=== PATIENT | male | born 1985 ===

== ENCOUNTER 2017-10-31 16:54 | Inpatient (IN) | payer SELFPAY ==
[2017-10-31 17:23] VITALS: BMI 32.3
[2017-10-31] MEDS ORDERED: Sodium Chloride 0.9% 1,000 ML IV STA (18:17)
[2017-10-31] MEDS ORDERED: HYDROmorphone 1 mg/ml ISec IVP STA (18:17)
--- NOTE | 2017-10-31 18:35 | C.PDOC ---
History Of Present Illness 32 year old male presents to ED for evaluation of left sided abdominal pain for the past week. Otherwise, denies n/v/d/ constipation, urinary symptoms, back pain, or fever. Time Seen by Provider: 10/31/17 18:11 Chief Complaint (Nursing): Abdominal Pain History Per: Patient History/Exam Limitations: no limitations Onset/Duration Of Symptoms: Days Current Symptoms Are (Timing): Still Present Radiation Of Pain To:: None Quality Of Discomfort: "Pain" Associated Symptoms: denies: Loss Of Appetite, Back Pain, Chest Pain, Constipation, Urinary Symptoms Exacerbating Factors: None Alleviating Factors: None Recent travel outside of the [place]: No Additional History Per: Patient Past Medical History Reviewed: Historical Data, Nursing Documentation, Vital Signs Vital Signs: Last Vital Signs Temp 99.3 F 10/31/17 17:23 Pulse 109 H 10/31/17 17:23 Resp 20 10/31/17 17:23 BP 124/68 10/31/17 17:23 Pulse Ox 99 10/31/17 18:41 Surgical History: Appendectomy Family History: States: Unknown Family Hx - Social History Hx Alcohol Use: Yes Hx Substance Use: No - Immunization History Hx Tetanus Toxoid Vaccination: No Hx Influenza Vaccination: No Hx Pneumococcal Vaccination: No Review Of Systems Except As Marked, All Systems Reviewed And Found Negative. Constitutional: Negative for: Fever, Chills Gastrointestinal: Positive for: Abdominal Pain. Negative for: Nausea, Vomiting , Diarrhea, Constipation Genitourinary: Negative for: Dysuria, Frequency, Hematuria, Penile Discharge Musculoskeletal: Negative for: Back Pain Physical Exam - Physical Exam Appears: Non-toxic, Other (Uncomfortable) Skin: Normal Color, Warm, Dry Head: Atraumatic, Normacephalic Eye(s): bilateral: Normal Inspection Oral Mucosa: Moist Neck: Normal ROM, Supple Cardiovascular: Rhythm Regular, No Murmur Respiratory: Normal Breath Sounds, No Rales, No Rhonchi, No Wheezing Gastrointestinal/Abdominal: Soft, Tenderness (severe LLQ), Guarding, Rebound Back: No CVA Tenderness Extremity: Normal ROM, No Deformity Neurological/Psych: Oriented x3, Normal Speech ED Course And Treatment O2 Sat by Pulse Oximetry: 99 (RA) Pulse Ox Interpretation: Normal Progress Note: Blood work, UA, Abd & Pelvis CT scan ordered and reviewed. Pt was given IV fluids, Zofran, Dilaudid, and Protonix. Pt will be signed over to Dr. Crockett at 7:00pm, pending labs, CT scan, re-eval, and disposition. Disposition - Disposition Disposition Time: 18:53 Condition: FAIR Forms: [facility] (Chinese) - Clinical Impression Clinical Impression: Abdominal pain - PA / MOLDER TRIMMER / Resident Statement MD/DO has reviewed & agrees with the documentation as recorded. - Scribe Statement The provider has reviewed the documentation as recorded by the Scribe Elijah Duffy All medical record entries made by the Scribe were at my direction and personally dictated by me. I have reviewed the chart and agree that the record accurately reflects my personal performance of the history, physical exam, medical decision making, and the department course for this patient. I have also personally directed, reviewed, and agree with the discharge instructions and disposition. Physician Patient Turnover Patient Signed Over To: Nawaf Crockett Handoff Comments: Pending lab results, CT scan, re-eval, and disposition
[2017-10-31] MEDS ORDERED: Iohexol 240 (50 ml) PO STA (18:52)
[2017-10-31] MEDS ORDERED: Sodium Chloride 0.9% 1,000 ML ONE ×2 (18:56→23:34)
[2017-10-31 19:17] LABS: BASO # 0.1 K/uL (0.0-0.2); EOS # 0.4 K/uL (0.0-0.7); EOS % 3.4 % (0.0-4.0); HEMOGLOBIN 16.1 g/dL (12.0-18.0); LYMPH % 28.9 % (20.0-40.0); MEAN CELL VOLUME 87.5 fL (80.0-94.0); MEAN CORPUSCULAR HGB CONC 35.4 g/dL (33.0-37.0); MEAN PLATELET VOLUME 10.9 fL (7.2-11.7); MONO # 0.8 K/uL (0.0-0.8); MONO % 7.6 % (0.0-10.0); NEUT # 6.2 K/uL (1.8-7.0); NEUT % 59.1 % (50.0-75.0); RBC 5.2 Mil/uL (4.40-5.90); RED CELL DISTRIBUTION WIDTH 13.3 % (11.5-14.5); WHITE BLOOD COUNT 10.5 K/uL (4.8-10.8)
[2017-10-31 19:21] LABS: URINE BILIRUBIN NEGATIVE (NEGATIVE); URINE BLOOD NEGATIVE (NEGATIVE); URINE CLARITY Hazy (Clear); URINE COLOR Amber (YELLOW); URINE GLUCOSE (UA) NORMAL (Normal); URINE LEUKOCYTE ESTERASE NEG Leu/uL (Negative); URINE NITRATE NEGATIVE (NEGATIVE); URINE PROTEIN 1+ mg/dL (NEGATIVE)
[2017-10-31] MEDS ORDERED: Iohexol 240 (50 ml) ONE (19:22)
[2017-10-31 19:28] LABS: ALB/GLOB RATIO 1.2 (1.0-2.1); ALBUMIN 4.4 g/dL (3.5-5.0); ALT/SGPT 43 U/L (21-72); AST/SGOT 34 U/L (17-59); BLOOD UREA NITROGEN 14 mg/dL (9-20); CALCIUM 9.1 mg/dl (8.6-10.4); GFR AFRICAN-AMERICAN > 60; GFR NON-AFRICAN AMERICAN > 60; LIPASE 42 U/L (23-300)
[2017-10-31] MEDS ORDERED: Iohexol 300 100 ML IJ ONE (20:20)
[2017-10-31 20:51] LABS: INR 1.3; PROTHROMBIN TIME 14.2 SECONDS (9.7-12.2)
--- NOTE | 2017-10-31 21:20 | CT ---
EXAM: CT Abdomen and Pelvis With Intravenous Contrast CLINICAL HISTORY: 32 years old, male; Pain; Abdominal pain; Flank; Left lower quadrant (llq); Additional info: Severe llq pain TECHNIQUE: Axial computed tomography images of the abdomen and pelvis with intravenous contrast. All CT scans at this facility use one or more dose reduction techniques, viz.: automated exposure control; ma/kV adjustment per patient size (including targeted exams where dose is matched to indication; i.e. head); or iterative reconstruction technique. Coronal and sagittal reformatted images were created and reviewed. CONTRAST: 100 mL of OMNIPAQUE 300 administered intravenously. COMPARISON: No relevant prior studies available. FINDINGS: Lower thorax: Minimal atelectasis. ABDOMEN: Liver: Fatty infiltration. Gallbladder and bile ducts: No calcified stones. No ductal dilation. Pancreas: No ductal dilation. No mass. Spleen: No splenomegaly. Adrenals: No mass. Kidneys and ureters: No mass. No hydronephrosis. Stomach and bowel: Moderate mural thickening short segment of distal descending/proximal sigmoid colon. [id number] stranding within adjacent fat. No obstruction. Appendix: No findings to suggest acute appendicitis. PELVIS: Bladder: Unremarkable. Reproductive: Unremarkable as visualized. ABDOMEN and PELVIS: Intraperitoneal space: Trace free fluid within pelvis. No free air. Bones/joints: No acute fracture. Soft tissues: Minimal gynecomastia. Vasculature: Unremarkable. No aneurysm. Lymph nodes: No pathologically enlarged lymph nodes. IMPRESSION: 1. Findings compatible with acute diverticulitis of distal descending/proximal sigmoid colon Recommend endoscopy following resolution. 2. Incidental/non-acute findings are described above.
[2017-10-31] MEDS ORDERED: Ciprofloxacin 400mg/200ml D5W 400 MG/200 ML BAG IVPB STA (21:40)
[2017-10-31] MEDS ORDERED: metroNIDAZOLE IV 500 mg/100 ml 500 MG/100 ML BAG IVPB SCH (21:45)
[2017-10-31] MEDS ORDERED: metroNIDAZOLE IV 500 mg/100 ml 500 MG/100 ML BAG IVPB STA (21:50)
[2017-10-31] MEDS ORDERED: Ciprofloxacin 400mg/200ml D5W 0 MG/0 ML BAG IVPB ONE (21:56)
[2017-10-31] MEDS ORDERED: metroNIDAZOLE IV 500 mg/100 ml 500 MG/100 ML BAG ONE (21:56)
[2017-10-31] MEDS ORDERED: Morphine 4 MG/ML VIAL IV PRN (22:27)
--- NOTE | 2017-10-31 23:19 | CP.PCM.HP ---
<DillonRenee YuenMaya - Last Filed: 11/01/17 02:12> History of Present Illness - History of Present Illness History of Present Illness: CC:" abdominal pain" HPI: 32 year old male with past medical history of HTN presents to the ED for abdominal pain. Patient states the pain has been going on for a week but he thought it was just gas pains. He states yesterday around 3pm the pain became worse and today his prompted him to go to the ED. He says he had a small bowel movement this morning. He states his pain was a 10/10 and currently it is a 6/10 with the pain medications given to him in the ED. He describes the pain as an intense pain that is located mostly in his left lower quadrant. He says the pain is constant. He says he has not had any food since yesterday during dinner. He denies nausea, vomiting, fever, diarrhea or constipation. He denies any sick contacts at home. He states he has not had this pain in the past. PMD: None Past Medical History: HTN Past Surgical History: Appendectomy Medications: does not recall blood pressure medication as ran out of med since coming to the [facility] 4 months ago; Aspirin 81mg daily Allergies: NKDA Family History: Mom 56 years of age and has DM; Dad - 62 yo HTN Social History: Came to the [facility] has been here for 4 months; denies smoking, denies drug use, drinks alcohol socially Present on Admission - Present on Admission Any Indicators Present on Admission: No Review of Systems - Constitutional Constitutional: absent: Fever, Headache - EENT Eyes: absent: Change in Vision - Cardiovascular Cardiovascular: absent: Chest Pain, Dyspnea - Respiratory Respiratory: absent: Dyspnea - Gastrointestinal Gastrointestinal: Abdominal Pain. absent: Constipation, Diarrhea, Nausea, Vomiting - Genitourinary Genitourinary: absent: Dysuria - Endocrine Endocrine: absent: Palpitations Past Patient History - Past Social History Smoking Status: Never Smoked - PSYCHIATRIC Hx Substance Use: No - SURGICAL HISTORY Hx Appendectomy: Yes - ANESTHESIA Hx Anesthesia: Yes Hx Anesthesia Reactions: No Hx Malignant Hyperthermia: No Meds Allergies/Adverse Reactions: Allergies Allergy/AdvReac Type Severity Reaction Status Date / Time No Known Allergies Allergy Verified 10/31/17 17:22 Physical Exam - Constitutional Appears: No Acute Distress - Head Exam Head Exam: ATRAUMATIC, NORMAL INSPECTION - Eye Exam Eye Exam: EOMI, Normal appearance - ENT Exam ENT Exam: Mucous Membranes Dry - Respiratory Exam Respiratory Exam: Clear to Auscultation Bilateral, NORMAL BREATHING PATTERN - Cardiovascular Exam Cardiovascular Exam: REGULAR RHYTHM, +S1, +S2 - GI/Abdominal Exam GI & Abdominal Exam: Guarding (LLQ), Normal Bowel Sounds, Soft, Tenderness ( diffuse mostly LLQ). absent: Distended, Firm - Extremities Exam Extremities exam: Positive for: normal inspection. Negative for: joint swelling , pedal edema, tenderness - Neurological Exam Neurological exam: Alert, CN II-XII Intact, Oriented x3 - Skin Skin Exam: Normal Color, Warm Results - Vital Signs Recent Vital Signs: Last Vital Signs Temp 98.6 F 10/31/17 20:20 Pulse 95 H 10/31/17 20:20 Resp 24 10/31/17 20:20 BP 142/86 10/31/17 20:20 Pulse Ox 99 10/31/17 20:20 - Labs Result Diagrams: 10/31/17 19:13 10/31/17 19:13 Labs: Laboratory Results - last 24 hr 10/31/17 10/31/17 10/31/17 19:13 19:13 19:13 WBC 10.5 RBC 5.20 Hgb 16.1 Hct 45.5 MCV 87.5 MCH 31.0 MCHC 35.4 RDW 13.3 Plt Count 130 MPV 10.9 Neut % (Auto) 59.1 Lymph % (Auto) 28.9 [place] % (Auto) 7.6 Eos % (Auto) 3.4 Baso % (Auto) 1.0 Neut # (Auto) 6.2 Lymph # (Auto) 3.0 [place] # (Auto) 0.8 Eos # (Auto) 0.4 Baso # (Auto) 0.1 Differential Comment PT INR APTT Sodium 136 Potassium 3.9 Chloride 96 L Carbon Dioxide 30 Anion Gap 14 BUN 14 Creatinine 0.9 Est GFR ( Amer) > 60 Est GFR (Non-Af Amer) > 60 Random Glucose 87 Calcium 9.1 Total Bilirubin 1.5 H AST 34 ALT 43 Alkaline Phosphatase 54 Total Protein 8.0 Albumin 4.4 Globulin 3.6 Albumin/Globulin Ratio 1.2 Lipase 42 Urine Color Marisela Urine Clarity Hazy Urine pH 5.0 Ur Specific [place] 1.030 Urine Protein 1+ H Urine Glucose (UA) Normal Urine Ketones 1+ H Urine Blood Negative Urine Nitrate Negative Urine Bilirubin Negative Urine Urobilinogen 2.0 Ur Leukocyte Esterase Neg Urine WBC (Auto) 2 Urine RBC (Auto) 1 10/31/17 20:35 WBC RBC Hgb Hct MCV MCH MCHC RDW Plt Count MPV Neut % (Auto) Lymph % (Auto) [place] % (Auto) Eos % (Auto) Baso % (Auto) Neut # (Auto) Lymph # (Auto) [place] # (Auto) Eos # (Auto) Baso # (Auto) Differential Comment PT 14.2 H INR 1.3 APTT 26 Sodium Potassium Chloride Carbon Dioxide Anion Gap BUN Creatinine Est GFR ( Amer) Est GFR (Non-Af Amer) Random Glucose Calcium Total Bilirubin AST ALT Alkaline Phosphatase Total Protein Albumin Globulin Albumin/Globulin Ratio Lipase Urine Color Urine Clarity Urine pH Ur Specific [place] Urine Protein Urine Glucose (UA) Urine Ketones Urine Blood Urine Nitrate Urine Bilirubin Urine Urobilinogen Ur Leukocyte Esterase Urine WBC (Auto) Urine RBC (Auto) Assessment & Plan - Assessment and Plan (Free Text) Plan: 1.) Diverticulitis - CT of abd/pelvis:Findings compatible with acute diverticulitis of distal descending/proximal sigmoid colon Recommend endoscopy following resolution. - GI consult Dr. Hodges --> help appreciated - NPO - Cirpofloxacin 400mg q12h - Flagyl 500mg q8h - Florator 250mg daily - NS @100cc/hr - Morphine 1mg q4 PRN for pain 2.) History of HTN - Patient states he is not currently taking anything because he used to get his medication from [place] - Aspirin 81mg po daily - Monitor 3.) Prophylaxis - SCDs - Protonix 40mg q12h Case discussed with Dr. Yolette Carranza PGY-1 <Dat De La Vega - Last Filed: 11/01/17 06:14> Results - Vital Signs Recent Vital Signs: Last Vital Signs Temp 97.7 F 11/01/17 00:10 Pulse 73 11/01/17 00:10 Resp 20 11/01/17 00:10 BP 123/70 11/01/17 00:10 Pulse Ox 97 11/01/17 00:10 - Labs Result Diagrams: 10/31/17 19:13 10/31/17 19:13 Labs: Laboratory Results - last 24 hr 10/31/17 10/31/17 10/31/17 19:13 19:13 19:13 WBC 10.5 RBC 5.20 Hgb 16.1 Hct 45.5 MCV 87.5 MCH 31.0 MCHC 35.4 RDW 13.3 Plt Count 130 MPV 10.9 Neut % (Auto) 59.1 Lymph % (Auto) 28.9 [place] % (Auto) 7.6 Eos % (Auto) 3.4 Baso % (Auto) 1.0 Neut # (Auto) 6.2 Lymph # (Auto) 3.0 [place] # (Auto) 0.8 Eos # (Auto) 0.4 Baso # (Auto) 0.1 Differential Comment PT INR APTT Sodium 136 Potassium 3.9 Chloride 96 L Carbon Dioxide 30 Anion Gap 14 BUN 14 Creatinine 0.9 Est GFR ( Amer) > 60 Est GFR (Non-Af Amer) > 60 Random Glucose 87 Calcium 9.1 Total Bilirubin 1.5 H AST 34 ALT 43 Alkaline Phosphatase 54 Total Protein 8.0 Albumin 4.4 Globulin 3.6 Albumin/Globulin Ratio 1.2 Lipase 42 Urine Color Marisela Urine Clarity Hazy Urine pH 5.0 Ur Specific [place] 1.030 Urine Protein 1+ H Urine Glucose (UA) Normal Urine Ketones 1+ H Urine Blood Negative Urine Nitrate Negative Urine Bilirubin Negative Urine Urobilinogen 2.0 Ur Leukocyte Esterase Neg Urine WBC (Auto) 2 Urine RBC (Auto) 1 10/31/17 20:35 WBC RBC Hgb Hct MCV MCH MCHC RDW Plt Count MPV Neut % (Auto) Lymph % (Auto) [place] % (Auto) Eos % (Auto) Baso % (Auto) Neut # (Auto) Lymph # (Auto) [place] # (Auto) Eos # (Auto) Baso # (Auto) Differential Comment PT 14.2 H INR 1.3 APTT 26 Sodium Potassium Chloride Carbon Dioxide Anion Gap BUN Creatinine Est GFR ( Amer) Est GFR (Non-Af Amer) Random Glucose Calcium Total Bilirubin AST ALT Alkaline Phosphatase Total Protein Albumin Globulin Albumin/Globulin Ratio Lipase Urine Color Urine Clarity Urine pH Ur Specific [place] Urine Protein Urine Glucose (UA) Urine Ketones Urine Blood Urine Nitrate Urine Bilirubin Urine Urobilinogen Ur Leukocyte Esterase Urine WBC (Auto) Urine RBC (Auto) Assessment & Plan - Date & Time Date: 11/01/17 (I have seen and examined the patient. I agree with the findings and plan of care as documented by Dr. Carranza. Patient with acute diverticulitis. [place] and [place]. Consult to GI. NPO. IVF. Symptomatic treatment. Monitor for acute changes.) Time: 06:13 Attending/Attestation - Attestation I have personally seen and examined this patient.: Yes I have fully participated in the care of the patient.: Yes I have reviewed all pertinent clinical information: Yes
[2017-10-31] MEDS ORDERED: Ciprofloxacin 400mg/200ml D5W 400 MG/200 ML BAG IVPB ONE (23:34)
[2017-10-31] MEDS: Sodium Chloride 0.9% 1,000 ML IV SCH (23:43)
[2017-11-01 01:35] VITALS: RESP 20
[2017-11-01] MEDS: metroNIDAZOLE IV 500 mg/100 ml 500 MG/100 ML BAG IVPB SCH ×2 (06:32→14:50)
[2017-11-01] MEDS ORDERED: Morphine 4 MG/ML VIAL IVP PRN (07:52)
[2017-11-01 08:39] LABS: ALB/GLOB RATIO 1.1 (1.0-2.1); ALBUMIN 3.4 g/dL (3.5-5.0); ALT/SGPT 36 U/L (21-72); AST/SGOT 24 U/L (17-59); BLOOD UREA NITROGEN 13 mg/dL (9-20); CALCIUM 8.2 mg/dl (8.6-10.4); GFR AFRICAN-AMERICAN > 60; GFR NON-AFRICAN AMERICAN > 60; MAGNESIUM 1.6 mg/dL (1.6-2.3)
[2017-11-01 08:41] LABS: BASO % 0.4 % (0.0-2.0); EOS # 0.5 K/uL (0.0-0.7); EOS % 6.2 % (0.0-4.0); HEMOGLOBIN 14.5 g/dL (12.0-18.0); LYMPH # 2.3 K/uL (1.0-4.3); LYMPH % 29.7 % (20.0-40.0); MEAN CELL VOLUME 86.9 fL (80.0-94.0); MEAN CORPUSCULAR HEMOGLOBIN 30.7 pg (27.0-31.0); MEAN CORPUSCULAR HGB CONC 35.3 g/dL (33.0-37.0); MEAN PLATELET VOLUME 11.1 fL (7.2-11.7); MONO # 0.8 K/uL (0.0-0.8); MONO % 10.8 % (0.0-10.0); NEUT % 52.9 % (50.0-75.0); NRBC % 0.3 % (0.0-2.0); RBC 4.74 Mil/uL (4.40-5.90); RED CELL DISTRIBUTION WIDTH 13.2 % (11.5-14.5); WHITE BLOOD COUNT 7.6 K/uL (4.8-10.8)
[2017-11-01] MEDS ORDERED: Ciprofloxacin 400mg/200ml D5W 400 MG/200 ML BAG IVPB SCH (10:00)
[2017-11-01] MEDS ORDERED: Saccharomyces Boulardi 250 mg Cap PO SCH (10:00)
[2017-11-01] MEDS: Sodium Chloride 0.9% 1,000 ML IV SCH (10:18)
--- NOTE | 2017-11-01 10:29 | CP.PCM.CON ---
History of Present Illness - History of Present Illness History of Present Illness: CI service consult requested for abdominal pain which developed yesterday, LLQ location, associated with fever, chills. Feels better today. CT scan notes inflammatory changes in the sigmoid region. Begun on Cipro and Flagyl on admission. Review of Systems - Constitutional Constitutional: Chills - Cardiovascular Cardiovascular: absent: Chest Pain - Respiratory Respiratory: absent: Dyspnea - Gastrointestinal Gastrointestinal: As Per HPI, Abdominal Pain. absent: Melena, Nausea Past Patient History - Past Medical History & Family History Past Medical History?: Yes - Past Social History Smoking Status: Never Smoked - CARDIAC Hx Cardiac Disorders: Yes Hx Hypertension: Yes - PULMONARY Hx Respiratory Disorders: No - NEUROLOGICAL Hx Neurological Disorder: No - HEENT Hx HEENT Problems: No - RENAL Hx Chronic Kidney Disease: No - ENDOCRINE/METABOLIC Hx Endocrine Disorders: No - HEMATOLOGICAL/ONCOLOGICAL Hx Blood Disorders: No - INTEGUMENTARY Hx Dermatological Problems: No - MUSCULOSKELETAL/RHEUMATOLOGICAL Hx Musculoskeletal Disorders: No Hx Falls: No - GASTROINTESTINAL Hx Gastrointestinal Disorders: No - GENITOURINARY/GYNECOLOGICAL Hx Genitourinary Disorders: No - PSYCHIATRIC Hx Psychophysiologic Disorder: No Hx Substance Use: No - SURGICAL HISTORY Hx Surgeries: Yes Hx Appendectomy: Yes - ANESTHESIA Hx Anesthesia: Yes Hx Anesthesia Reactions: No Hx Malignant Hyperthermia: No Meds Allergies/Adverse Reactions: Allergies Allergy/AdvReac Type Severity Reaction Status Date / Time No Known Allergies Allergy Verified 10/31/17 17:22 - Medications Medications: Current Medications Ciprofloxacin (Cipro 400mg/200ml Dsw) 400 mg in 200 mls @ 133 mls/hr IVPB Q12H [facility] Last Admin: 11/01/17 10:19 Dose: 133 mls/hr Metronidazole (Flagyl) 500 mg in 100 mls @ 100 mls/hr IVPB Q8 [facility] Last Admin: 11/01/17 06:32 Dose: 100 mls/hr Sodium Chloride (Sodium Chloride 0.9%) 1,000 mls @ 100 mls/hr IV .Q10H [facility] Last Admin: 11/01/17 10:18 Dose: 100 mls/hr Morphine Sulfate (Morphine) 1 mg IVP Q6 PRN PRN Reason: Pain, moderate (4-7) Pantoprazole Sodium (Protonix Inj) 40 mg IVP DAILY [facility] Last Admin: 02/03/18 10:17 Dose: 40 mg Saccharomyces Boulardii (Florastor) 250 mg PO DAILY [facility] Last Admin: 11/01/17 10:17 Dose: 250 mg Physical Exam - Constitutional Appears: Well, No Acute Distress - Head Exam Head Exam: NORMOCEPHALIC - Eye Exam Eye Exam: Normal appearance. absent: Scleral icterus - ENT Exam ENT Exam: Normal Exam - Respiratory Exam Respiratory Exam: Clear to Auscultation Bilateral - Cardiovascular Exam Cardiovascular Exam: REGULAR RHYTHM - GI/Abdominal Exam GI & Abdominal Exam: Guarding (LLQ tenderness), Soft, Tenderness. absent: Distended, Mass, Rebound Results - Vital Signs Recent Vital Signs: Last Vital Signs Temp 98.7 F 11/01/17 08:15 Pulse 82 11/01/17 08:15 Resp 20 11/01/17 08:15 BP 109/68 11/01/17 08:15 Pulse Ox 97 11/01/17 08:15 - Labs Result Diagrams: 11/01/17 07:54 11/01/17 07:54 Labs: Laboratory Results - last 24 hr 10/31/17 10/31/17 10/31/17 19:13 19:13 19:13 WBC 10.5 RBC 5.20 Hgb 16.1 Hct 45.5 MCV 87.5 MCH 31.0 MCHC 35.4 RDW 13.3 Plt Count 130 MPV 10.9 Neut % (Auto) 59.1 Lymph % (Auto) 28.9 [place] % (Auto) 7.6 Eos % (Auto) 3.4 Baso % (Auto) 1.0 Neut # (Auto) 6.2 Lymph # (Auto) 3.0 [place] # (Auto) 0.8 Eos # (Auto) 0.4 Baso # (Auto) 0.1 Differential Comment PT INR APTT Sodium 136 Potassium 3.9 Chloride 96 L Carbon Dioxide 30 Anion Gap 14 BUN 14 Creatinine 0.9 Est GFR ( Amer) > 60 Est GFR (Non-Af Amer) > 60 Random Glucose 87 Calcium 9.1 Phosphorus Magnesium Total Bilirubin 1.5 H AST 34 ALT 43 Alkaline Phosphatase 54 Total Protein 8.0 Albumin 4.4 Globulin 3.6 Albumin/Globulin Ratio 1.2 Lipase 42 Urine Color Marisela Urine Clarity Hazy Urine pH 5.0 Ur Specific [place] 1.030 Urine Protein 1+ H Urine Glucose (UA) Normal Urine Ketones 1+ H Urine Blood Negative Urine Nitrate Negative Urine Bilirubin Negative Urine Urobilinogen 2.0 Ur Leukocyte Esterase Neg Urine WBC (Auto) 2 Urine RBC (Auto) 1 10/31/17 11/01/17 11/01/17 20:35 07:54 07:54 WBC 7.6 RBC 4.74 Hgb 14.5 Hct 41.2 MCV 86.9 MCH 30.7 MCHC 35.3 RDW 13.2 Plt Count 113 L MPV 11.1 Neut % (Auto) 52.9 Lymph % (Auto) 29.7 [place] % (Auto) 10.8 H Eos % (Auto) 6.2 H Baso % (Auto) 0.4 Neut # (Auto) 4.0 Lymph # (Auto) 2.3 [place] # (Auto) 0.8 Eos # (Auto) 0.5 Baso # (Auto) 0.0 Differential Comment PT 14.2 H INR 1.3 APTT 26 Sodium 134 Potassium 3.6 Chloride 99 Carbon Dioxide 29 Anion Gap 11 BUN 13 Creatinine 0.9 Est GFR ( Amer) > 60 Est GFR (Non-Af Amer) > 60 Random Glucose 89 Calcium 8.2 L Phosphorus 2.8 Magnesium 1.6 Total Bilirubin 1.8 H AST 24 ALT 36 Alkaline Phosphatase 46 Total Protein 6.4 Albumin 3.4 L D Globulin 3.0 Albumin/Globulin Ratio 1.1 Lipase Urine Color Urine Clarity Urine pH Ur Specific [place] Urine Protein Urine Glucose (UA) Urine Ketones Urine Blood Urine Nitrate Urine Bilirubin Urine Urobilinogen Ur Leukocyte Esterase Urine WBC (Auto) Urine RBC (Auto) Assessment & Plan (1) Abdominal pain Assessment and Plan: Acute Diverticulitis suspected based on CT findings and location of pain. Clinically improving with conservative therapy. Rec: 2 week course of antibiotics then follow up in clinic to arrange outpatient colonoscopy in 4 - 6 weeks Advance diet as tolerated. Status: Acute - Date & Time Date: 11/01/17 Time: 10:32
--- NOTE | 2017-11-01 15:57 | CP.PCM.DIS ---
Provider - Provider Date of Admission: 10/31/17 22:24 Attending physician: Dat De La Vega MD Primary care physician: none Consults: Dr. Mead - GI Time Spent in preparation of Discharge (in minutes): 35 Diagnosis - Discharge Diagnosis (1) Diverticulitis Status: Acute Comment: Cipro/Flagyl PO x 14 days. Colonoscopy after resolved. f/u [facility] Hospital Course - Lab Results Lab Results: Most Recent Lab Values WBC 7.6 K/uL (4.8-10.8) 11/01/17 07:54 RBC 4.74 Mil/uL (4.40-5.90) 11/01/17 07:54 Hgb 14.5 g/dL (12.0-18.0) 11/01/17 07:54 Hct 41.2 % (35.0-51.0) 11/01/17 07:54 MCV 86.9 fL (80.0-94.0) 11/01/17 07:54 MCH 30.7 pg (27.0-31.0) 11/01/17 07:54 MCHC 35.3 g/dL (33.0-37.0) 11/01/17 07:54 RDW 13.2 % (11.5-14.5) 11/01/17 07:54 Plt Count 113 K/uL (130-400) L 11/01/17 07:54 MPV 11.1 fL (7.2-11.7) 11/01/17 07:54 Neut % (Auto) 52.9 % (50.0-75.0) 11/01/17 07:54 Lymph % (Auto) 29.7 % (20.0-40.0) 11/01/17 07:54 [place] % (Auto) 10.8 % (0.0-10.0) H 11/01/17 07:54 Eos % (Auto) 6.2 % (0.0-4.0) H 11/01/17 07:54 Baso % (Auto) 0.4 % (0.0-2.0) 11/01/17 07:54 Neut # (Auto) 4.0 K/uL (1.8-7.0) 11/01/17 07:54 Lymph # (Auto) 2.3 K/uL (1.0-4.3) 11/01/17 07:54 [place] # (Auto) 0.8 K/uL (0.0-0.8) 11/01/17 07:54 Eos # (Auto) 0.5 K/uL (0.0-0.7) 11/01/17 07:54 Baso # (Auto) 0.0 K/uL (0.0-0.2) 11/01/17 07:54 Differential Comment 11/01/17 07:54 PT 14.2 SECONDS (9.7-12.2) H 10/31/17 20:35 INR 1.3 10/31/17 20:35 APTT 26 SECONDS (21-34) 10/31/17 20:35 Sodium 134 mmol/L (132-148) 11/01/17 07:54 Potassium 3.6 mmol/L (3.6-5.2) 11/01/17 07:54 Chloride 99 mmol/L (98-107) 11/01/17 07:54 Carbon Dioxide 29 mmol/L (22-30) 11/01/17 07:54 Anion Gap 11 (10-20) 11/01/17 07:54 BUN 13 mg/dL (9-20) 11/01/17 07:54 Creatinine 0.9 mg/dL (0.8-1.5) 11/01/17 07:54 Est GFR ( Amer) > 60 11/01/17 07:54 Est GFR (Non-Af Amer) > 60 11/01/17 07:54 Random Glucose 89 mg/dL (75-110) 11/01/17 07:54 Calcium 8.2 mg/dl (8.6-10.4) L 11/01/17 07:54 Phosphorus 2.8 mg/dL (2.5-4.5) 11/01/17 07:54 Magnesium 1.6 mg/dL (1.6-2.3) 11/01/17 07:54 Total Bilirubin 1.8 mg/dL (0.2-1.3) H 11/01/17 07:54 AST 24 U/L (17-59) 11/01/17 07:54 ALT 36 U/L (21-72) 11/01/17 07:54 Alkaline Phosphatase 46 U/L (38-126) 11/01/17 07:54 Total Protein 6.4 g/dL (6.3-8.3) 11/01/17 07:54 Albumin 3.4 g/dL (3.5-5.0) L D 11/01/17 07:54 Globulin 3.0 gm/dL (2.2-3.9) 11/01/17 07:54 Albumin/Globulin Ratio 1.1 (1.0-2.1) 11/01/17 07:54 Lipase 42 U/L (23-300) 10/31/17 19:13 Urine Color Marisela (YELLOW) 10/31/17 19:13 Urine Clarity Hazy (Clear) 10/31/17 19:13 Urine pH 5.0 (5.0-8.0) 10/31/17 19:13 Ur Specific Egnar 1.030 (1.003-1.030) 10/31/17 19:13 Urine Protein 1+ mg/dL (NEGATIVE) H 10/31/17 19:13 Urine Glucose (UA) Normal mg/dL (Normal) 10/31/17 19:13 Urine Ketones 1+ mg/dL (NEGATIVE) H 10/31/17 19:13 Urine Blood Negative (NEGATIVE) 10/31/17 19:13 Urine Nitrate Negative (NEGATIVE) 10/31/17 19:13 Urine Bilirubin Negative (NEGATIVE) 10/31/17 19:13 Urine Urobilinogen 2.0 mg/dL (0.2-1.0) 10/31/17 19:13 Ur Leukocyte Esterase Neg Jb/uL (Negative) 10/31/17 19:13 Urine WBC (Auto) 2 /hpf (0-5) 10/31/17 19:13 Urine RBC (Auto) 1 /hpf (0-3) 10/31/17 19:13 - Hospital Course Hospital Course: PMD: None Past Medical History: HTN Past Surgical History: Appendectomy Medications: does not recall blood pressure medication as ran out of med since coming to the [facility] 4 months ago; Aspirin 81mg daily Allergies: NKDA Family History: Mom 56 years of age and has DM; Dad - 62 yo HTN Social History: Came to the [facility] has been here for 4 months; denies smoking, denies drug use, drinks alcohol socially On admission: 32 year old male with past medical history of HTN presents to the ED for abdominal pain. Patient states the pain has been going on for a week but he thought it was just gas pains. He states yesterday around 3pm the pain became worse and today his prompted him to go to the ED. He says he had a small bowel movement this morning. He states his pain was a 10/10 and currently it is a 6/10 with the pain medications given to him in the ED. He describes the pain as an intense pain that is located mostly in his left lower quadrant. He says the pain is constant. He says he has not had any food since yesterday during dinner. He denies nausea, vomiting, fever, diarrhea or constipation. He denies any sick contacts at home. He states he has not had this pain in the past. During hospital stay: CT of abd/pelvis showed findings compatible with acute diverticulitis of distal descending/proximal sigmoid colon. This is the patient first episode of diverticulitis. Patient was given cipro/flagyl and pain was managed with morphine. Patient was seen by GI and cleared for outpatient abx use with rec colonoscopy once symptoms have resolved. Patients pain was minimal today and he did not have fever/or chills during his hospital stay. Patient is stable for discharge home. Patient is to follow up in the [facility] within 2 weeks post discharge for post hospital follow up. Patient is to take Cipro 500mg one by mouth twice a day and Flagyl 500mg one by mouth three times a day for 2 weeks. Patient is to avoid alcohol use while taking these medications. Patient is to consume a liquid diet and slowly advance his diet as tolerated. He will need a referral for GI for colonoscopy in 4-6 weeks after the diverticulitis has resolved. Patient is to return if he develops fever/chills or worsening of his abdominal pain. All instructions explained to the patient and he agrees. Discharge Exam - Head Exam Head Exam: NORMOCEPHALIC - Eye Exam Eye Exam: EOMI, PERRL Pupil Exam: NORMAL ACCOMODATION - ENT Exam ENT Exam: Mucous Membranes Moist - Respiratory Exam Respiratory Exam: Clear to PA & Lateral, NORMAL BREATHING PATTERN. absent: Respiratory Distress - Cardiovascular Exam Cardiovascular Exam: REGULAR RHYTHM, +S1, +S2 - GI/Abdominal Exam GI & Abdominal Exam: Normal Bowel Sounds, Soft, Tenderness (mild tenderness LLQ) . absent: Distended, Firm, Guarding - Extremities Exam Extremities exam: normal inspection - Back Exam Back exam: NORMAL INSPECTION - Neurological Exam Neurological exam: Alert, CN II-XII Intact, Normal Gait, Oriented x3 - Psychiatric Exam Psychiatric exam: Normal Affect, Normal Mood - Skin Skin Exam: Dry, Intact, Normal Color, Warm Discharge Plan - Discharge Medications Prescriptions: Ciprofloxacin HCl [Cipro] 500 mg PO BID 14 Days #28 tablet Metronidazole 500 mg PO TID 14 Days #42 tablet - Follow Up Plan Condition: GOOD Disposition: HOME/ ROUTINE Instructions: Ciprofloxacin (By mouth), Metronidazole (By mouth), Acute Abdominal Pain (DC), Bowel Obstruction (DC), Full Liquid Diet (DC) Additional Instructions: Patient is stable for discharge home. Patient is to follow up in the [facility] within 2 weeks post discharge for post hospital follow up. Patient is to take Cipro 500mg one by mouth twice a day and Flagyl 500mg one by mouth three times a day for 2 weeks. Patient is to avoid alcohol use while taking these medications. Patient is to consume a liquid diet and slowly advance his diet as tolerated. He will need a referral for GI for colonoscopy in 4-6 weeks after the diverticulitis has resolved. Patient is to return if he develops fever/chills or worsening of his abdominal pain. All instructions explained to the patient and he agrees. Referrals: [facility] at [facility] [Outside] Jered Hodges MD [Staff Provider] -
[2017-11-01 17:07] VITALS: BP 113/68; PULSE 83; TEMP 99.1; O2SAT 98
[2017-11-02] MEDS ORDERED: Influenza Vaccine 60 mcg/0.5 mL SYR (4YR UP) IM ONE (10:00)
[2017-11-02] MEDS ORDERED: Pneumococcal 23-Valent Vaccine IM ONE (14:00)
== END 2017-11-01 17:23 | disposition home or self-care (01) | DRG 392 ==
LOC: C.ER 16:54 → C.9E 22:24 → C.6T 23:44
PROVIDERS: ADMIT Family Medicine; ATTEND Family Medicine
DX: K57.92 Diverticulitis of intestine, part unspecified, without perforation or abscess without bleeding (principal); I10 Essential (primary) hypertension

== ENCOUNTER 2018-03-25 09:27 | Emergency (ER) | payer OTHER ==
[2018-03-25 09:36] VITALS: BMI 30.1
[2018-03-25 09:37] VITALS: O2SAT 99
[2018-03-25] MEDS ORDERED: Naproxen 550 mg Tab PO STA (09:51)
[2018-03-25] MEDS ORDERED: Naproxen 550 mg Tab PO ONE (09:56)
--- NOTE | 2018-03-25 10:38 | C.PDOC ---
History Of Present Illness 33-year-old male presents to the ED for evaluation of right-sided lower back pain which began 1 week ago. Patient notes he picked up a heavy object approx one month ago, but otherwise denies any other trauma/injuries. Patient denies fever/chills, abdominal pain, dysuria/hematuria, urinary/bowel incontinence, urinary retention, sensory changes in lower extremities. Time Seen by Provider: 03/25/18 09:39 Chief Complaint (Nursing): Back Pain History Per: Patient History/Exam Limitations: no limitations Onset/Duration Of Symptoms: Other (1 week ) Current Symptoms Are (Timing): Still Present Quality Of Discomfort: "Pain" Severity: Moderate Previous Symptoms: Back Pain Associated Symptoms: denies: Incontinence, New Weakness, New Numbness Exacerbating Factor(s): Movement Additional History Per: Patient Past Medical History Reviewed: Historical Data, Nursing Documentation, Vital Signs Vital Signs: Last Vital Signs Temp 98.8 F 03/25/18 10:44 Pulse 70 03/25/18 10:44 Resp 20 03/25/18 10:44 BP 105/69 03/25/18 10:44 Pulse Ox 99 03/25/18 11:36 - Medical History PMH: No Chronic Diseases Denies: HTN (PT DENIES) Surgical History: Appendectomy Family History: States: No Known Family Hx - Social History Hx Alcohol Use: No Hx Substance Use: No - Immunization History Hx Tetanus Toxoid Vaccination: No Hx Influenza Vaccination: No Hx Pneumococcal Vaccination: No Review Of Systems Constitutional: Negative for: Fever, Chills Gastrointestinal: Negative for: Nausea, Vomiting, Abdominal Pain, Diarrhea Genitourinary: Negative for: Dysuria, Hematuria Musculoskeletal: Positive for: Back Pain (right-sided, lower ), Leg Pain (right) Skin: Negative for: Rash Neurological: Negative for: Weakness, Numbness Physical Exam - Physical Exam Appears: Well, Non-toxic, Other (in mild to moderate pain ) Skin: Normal Color, Warm, Dry, No Rash Head: Normacephalic Eye(s): bilateral: Normal Inspection Oral Mucosa: Moist Neck: Supple Cardiovascular: Rhythm Regular Respiratory: Normal Breath Sounds, No Rales, No Rhonchi, No Wheezing Gastrointestinal/Abdominal: Normal Exam, Bowel Sounds, Soft, No Tenderness Back: No CVA Tenderness, No Vertebral Tenderness, Other (right-sided, lumbar paraspinal tenderness ) Extremity: Normal ROM Neurological/Psych: Oriented x3, Normal Sensation Gait: Steady ED Course And Treatment O2 Sat by Pulse Oximetry: 99 (on RA) Pulse Ox Interpretation: Normal - Other Rad Lumbar Spine XR X-Ray: Interpreted by Me, Viewed By Me, Read By Radiologist Interpretation: PROCEDURE: Radiographs of the Lumbar Spine. HISTORY: low back pain. COMPARISON: No prior. FINDINGS: BONES: Normal alignment. No listhesis. No fracture. DISC SPACES: Unremarkable. OTHER FINDINGS: None. IMPRESSION: Unremarkable radiographs of the lumbar spine. Progress Note: Patient given Naproxen PO, Flexeril PO, and Prednisone PO. Xrays of LS Spine ordered and reviewed. Reevaluation Time: 10:45 Reassessment Condition: Improved (On re-examination, patient is resting comfortably, showing no signs of distress and reports an improvement in his pain. Patient is ambulatory in the ED. He was given Rxs for naprosyn, flexeril and prednisone, and instructed to follow up with PMD/clinic in 1-2 days. He understands he should return to ED if symptoms worsen.) Disposition Counseled Patient/Family Regarding: Studies Performed, Diagnosis, Need For Followup, Rx Given - Disposition Referrals: [facility] [Outside] Disposition: HOME/ ROUTINE Disposition Time: 10:45 Condition: STABLE Additional Instructions: FOLLOW UP WITH YOUR DOCTOR/CLINIC IN 1-2 DAYS USE MEDICATIONS NEEDED RETURN TO EMERGENCY ROOM IF SYMPTOMS WORSEN SEGUIMIENTO CON LAL MDICO / CLNICA EN 1-2 KERN USE MEDICAMENTOS SEGN SEA NECESARIO REGRESE AL BRAD DE EMERGENCIA SI LOS SNTOMAS EMPEORAN Prescriptions: Cyclobenzaprine [Flexeril] 10 mg PO BID PRN #15 tab PRN Reason: Muscle Spasm Naproxen 375 mg PO BID PRN #20 tablet PRN Reason: pain predniSONE [predniSONE Tab] 40 mg PO DAILY #6 tab Instructions: Low Back Pain (DC), Sciatica (DC) Forms: [facility] (Bulgarian), Work Excuse Print Language: BELIZEAN - POA Present On Arrival: None - Clinical Impression Clinical Impression: Sciatica, Low back pain - Scribe Statement The provider has reviewed the documentation as recorded by the Scribe (Jeannette Duffy) Provider Attestation: All medical record entries made by the Scribe were at my direction and personally dictated by me. I have reviewed the chart and agree that the record accurately reflects my personal performance of the history, physical exam, medical decision making, and the department course for this patient. I have also personally directed, reviewed, and agree with the discharge instructions and disposition.
[2018-03-25 10:45] VITALS: BP 105/69; PULSE 70; RESP 20; TEMP 98.8
--- NOTE | 2018-03-25 11:28 | RAD ---
PROCEDURE: Radiographs of the Lumbar Spine. HISTORY: low back pain COMPARISON: No prior. FINDINGS: BONES: Normal alignment. No listhesis. No fracture. DISC SPACES: Unremarkable. OTHER FINDINGS: None. IMPRESSION: Unremarkable radiographs of the lumbar spine.
== END 2018-03-25 11:00 | disposition home or self-care (01) ==
LOC: C.ER 09:27
DX: M54.40 Lumbago with sciatica, unspecified side (principal)